=== PATIENT | female | born 1930 ===

== ENCOUNTER 2020-01-05 14:42 | Inpatient (IN) | payer MEDICARE ==
[~2020-01-05] VITALS: Ht 157.5 cm; Wt 60.4 kg
[2020-01-05 15:30] LABS: BASOPHILS ABSOLUTE AUTO 0.03 K/mm3 (0.00-0.23); BASOPHILS PERCENT AUTO 1 % (0-2); EOSINOPHILS PERCENT AUTO 3 % (0-6); Hematocrit 40.6 % (33.0-51.0); Hemoglobin 12.1 g/dL (11.5-16.0); IMMATURE GRAN ABSOLUTE AUTO 0.02 K/mm3 (0.00-0.10); IMMATURE GRAN PERCENT AUTO 0 % (0-1); LYMPHOCYTES ABSOLUTE AUTO 1.32 K/mm3 (0.84-5.20); LYMPHOCYTES PERCENT AUTO 21 % (21-46); MONOCYTES PERCENT AUTO 11 % (4-13); Mean Corpuscular HGB 25.9 pg (26.0-34.0); Mean Corpuscular HGB Conc 29.8 g/dL (31.5-36.5); Mean Corpuscular Volume 87 fL (80-100); Mean Platelet Volume 9.9 fL (9.1-12.4); NEUTROPHILS ABSOLUTE AUTO 3.94 K/mm3 (1.96-9.15); NEUTROPHILS PERCENT AUTO 63 % (41-73); Platelet Count 293 K/mm3 (150-400); RDW Coefficient Variation 14.6 % (11.7-14.2); RDW Standard Deviation 46.7 fL (35.1-46.3); Red Blood Cell Count 4.67 M/mm3 (3.80-5.20); White Blood Cell Count 6.21 K/mm3 (4.00-11.30)
[2020-01-05 15:52] LABS: Alanine Aminotransfer (ALT/SGP 34 U/L (12-78); Albumin/Globulin Ratio 1.3 (0.8-1.8); Alk Phos 42 U/L (50-136); Anion Gap 7 mmol/L (6-16); Aspartate Aminotrans (AST/SGOT 19 U/L (12-37); Bilirubin, Total 0.9 mg/dL (0.1-1.0); Blood Urea Nitrogen 44 mg/dL (8-24); Bun/Creatinine Ratio 24.4 (12.0-20.0); CO2, Blood 24 mmol/L (21-32); Calcium, Blood 9.4 mg/dL (8.5-10.1); Chloride, Blood 106 mmol/L (98-108); Globulin, Blood 3.1 g/dL (2.2-4.0); Glomerular Filtration Rate 28 (60-); Glucose, Blood 137 mg/dL (70-99); Potassium, Blood 4.2 mmol/L (3.5-5.5); Sodium, Blood 137 mmol/L (136-145); Total Protein, Blood 7.1 g/dL (6.4-8.2); Troponin I <0.015 ng/mL (0.000-0.040)
[2020-01-05] MEDS ORDERED: OLMESARTAN-HCT1 EAC3 PO (16:05)
[2020-01-05] MEDS ORDERED: VERAPAMIL ER120 M1 PO (16:05)
[2020-01-05] MEDS ORDERED: EUTHYROX75 MC1 PO (16:06)
[2020-01-05] MEDS ORDERED: ASCO500 PO (16:09)
[2020-01-05] MEDS ORDERED: FERSU300 PO (16:26)
[2020-01-05] MEDS ORDERED: MULTI-VITAMIN1 EAC2 PO (16:26)
[2020-01-05] MEDS ORDERED: ACET500 PO (16:27)
[2020-01-05] MEDS ORDERED: NIACIN500 M5 PO (16:27)
[2020-01-05] MEDS ORDERED: Calcium/Vitamin D PO (16:27)
--- NOTE | 2020-01-05 23:15 | NUR ---
ICU ADMIT ASSESSMENT PT IS ALERT UPON ARRIVAL TO ICU. SHE WAS SLID OVER TO BED WITH NO ISSUES. SHE HOWEVER IS CONSTANTLY PICKING AT HER LINES AND CORDS STATES SHE CANNOT GET COMFORTABLE AND WHAT ARE THE LINES FOR. SHE NEEDS CONSTANT REMINDING ABOUT LEAVING THE LINES ALONE. VITALS ARE STABLE AT THIS TIME. HR IS 150'S DOPAMINE GTT WAS AT 15MG WHEN PT ARRIVED AND WAS TITRATED DOWN TO 5MG BY THIS RN. PT WILL BE STARTED ON LEVOPHED GTT INSTEAD DUE TO REACTION TO HR FROM DOPAMINE. PT WILL ALSO BE STARTED ON A HEP GTT WHEN PTT IS DRAWN. PT IS ON AN AMIO GTT AT 1MG AND WILL BE TITRATED DOWN IN 6 HRS ORDERED. PT HAD TWO PERIPHERAL IV'S TO BOTH AC'S. THEY ARE PATENT AND INFUSING WITH DRESSING CDI. PT HAS PACER PADS IN PLACE AND IS CONSTANTLY PICKING AT THEM. GOING TO ATTEMPT TO USE A BED FLANNERY PRIOR TO PLACING A CHILDS CATH. BLADDER SCAN WAS DONE WITH MINIMAL URINE NOTED. PT OVERALL HAS A BENIGN ASSESSMENT. DAUGHTER WAS IN ROOM, BUT SHE NEEDED TO GET HOME AND THEREFORE THERE WAS NOT A HISTORY COLLECTED ON PT. SHE WILL BE BACK IN AM. PT ALSO HAD AN ADVANCED DIRECTIVE AT HOME THAT THE DAUGHTER STATES IS A DNI. DISCUSSED THIS WITH PT AND DAUGHTER AND BOTH WANT HER TO BE CHANGED TO A DNI. PROVIDER WAS CALLED AND CONFIRMED THAT A DNI STATUS WAS OK TO BE INITIATED. CALL LIGHT WAS REVIEWED WITH PT, BUT SHORTLY THERE AFTER PT WAS QUESTIONING WHAT WAS THE CALL LIGHT.
--- NOTE | 2020-01-06 01:48 | NUR ---
SHIFT UP DATE DR PORTILLO PLACED A CENTRAL LINE TO RIGHT IJ AFTER CONSENT WAS RECIVED OVER THE PHONE FROM THE PT'S DAUGHTER AND FROM THE PATIENT. PT TOLERATED THIS PROCEDURE FAIRLY WELL. SHE DOES NOT TOLERATE LAYING FLAT FOR VERY LONG. BECOMES VERY ANXIOUS STATES SHE CAN NOT BREATHE AND FEELS LIKE SHE IS BEING CHOKED. VITALS REMAINED STABLE. PT THEN HAD A CHILDS CATH PLACED WITH VERY VERY MINIMAL RETURN LESS THAN 5CC. PT TOLERATED THIS VERY WELL. REFINERY PROCESS ENGINEER IN TO PERFORM ECHO. DR FLORES AWARE. HE IS PRESENT AT THIS TIME TO ASSESS PT.
--- NOTE | 2020-01-06 01:54 | NUR ---
Echocardiogram completed.
[2020-01-06 05:04] LABS: Albumin, Blood 3.3 g/dL (3.4-5.0); Albumin/Globulin Ratio 1.3 (0.8-1.8); Bilirubin, Total 1.9 mg/dL (0.1-1.0); Bun/Creatinine Ratio 19.5 (12.0-20.0); Calcium, Blood 8.4 mg/dL (8.5-10.1); Creatinine, Blood 2.31 mg/dL (0.40-1.00); Globulin, Blood 2.6 g/dL (2.2-4.0); Potassium, Blood 5.1 mmol/L (3.5-5.5); Total Protein, Blood 5.9 g/dL (6.4-8.2)
--- NOTE | 2020-01-06 05:14 | NUR ---
SHIFT SUMMARY PT CON'T HAVE NO CHANGES FROM BASELINE. HR WHILE RESTING QUIETLY IS IN THE LOW 60'S. PT HAS VERY POOR PERFUSION WITH FINGERS AND TOES BEING VERY COLD THUS THE OXYGEN SATS ARE NOT GOOD READINGS. SHE CON'T TO BE ON 4L N/C WITH NO SOB AT REST. PT DOES CON'T TO BE VERY ANXIOUS ABOUT HER CARE. SHE ALSO DOES NOT SEEM TO HAVE INCREASED CONFUSION T/O MORNING. SHE CON'T TO PULL AT HER LINES. SHE IS CONSTANTLY MOVING ABOUT IN BED READJUSTING ALL HER LINES AND BLANKETS. PT'S VITALS ARE STABLE AT THIS TIME. SEE ICU FLOW SHEET FOR ALL HER GTT CHANGES. LASIX GTT WAS STARTED ORDERED, PT CON'T TO HAVE LESS THAN 10 CC URINE OUTPUT. WILL CON'T TO MONITOR AND KEEP PT SAFE T/O REMAINDER OF SHIFT TILL REPORT TO ONCOMING RN. DR FLORES EARLIER IN THE SHIFT CALLED DR PORTILLO AND REQUESTED THAT THE CENTRAL LINE BE PULLED BACK 3CM. DR PORTILLO CALLED AND INFORMED THIS NURSE HE WOULD TRY TO GET TO IT OR IT WOULD HAVE TO BE DONE ON DAY SHIFT.
[2020-01-06 05:16] LABS: International Normalized Ratio 1.47; Prothrombin Time Results 15.4 Sec (9.7-11.5)
--- NOTE | 2020-01-06 06:15 | NUR ---
DNR UPDATE PT'S DAUGHTER CALLED AND THIS RN DISCUSSED WITH HER PT'S CONDITION. REPORTED TO HER SOME OF THE FINDINGS FROM THE ECHO. ALSO DISCUSSED WITH HER PT'S DESIRE TO NOT BE INTUBATED AND HOW THAT WOULD AFFECT THE OUTCOME OF A CODE. PT'S DAUGHTER DESIRES AT THIS TIME TO CHANGE PT TO A DNR/DNI. PT'S DAUGHTER STAES SHE WILL BE IN THIS AM TO DISCUSS WITH HER MOTHER, BUT AT THIS TIME SHE WANTS TO CHANGE PT'S CODE STATUS. WILL DISCUSS WITH DR PORTILLO.
[2020-01-06 07:22] LABS: International Normalized Ratio 1.54; Prothrombin Time Results 16.1 Sec (9.7-11.5)
--- NOTE | 2020-01-06 07:30 | NUR ---
ASSUMED CARE: REPORT RECEIVED FROM GILBERT Waldron RN. ASSUMED CARE OF THIS PT AT APPROX 0700. ON ASSESSMENT, THE PT IS AWAKE, ALERT TO SELF & LOCATION BUT FORGETFUL & NEEDING FREQUENT REMINDERS. LS ARE DIM T/O & COARSE IN BASES, PT ON 4L NC W/ O2 SATS > 92% WHEN ADEQUATE READING OBTAINED, OCCASIONALLY SHOWING SATS LOW 70s W/ POOR PLETH READING. MONITOR SHOWS SR W/ HR 60-70s, FREQUENT PVCs. LEVOPHED INFUSING AT 17 MCG/MIN TO MAINTAIN MAP > 60. AMIO INFUSING ORDERED. PT HAS NO GI COMPLAINTS, CHILDS PATENT/ DRAINING SCANT AMNTS YELLOW URINE. SKIN CONDITION FRAGILE BUT OVERALL INTACT. WILL CONTINUE TO MONITOR & UPDATE NEEDED.
--- NOTE | 2020-01-06 08:10 | NUR ---
DR ANDERSON: PROVIDER AT BEDSIDE TO [facility] PT. THIS RN HAS NOTIFIED HER THAT PT's DAUGHTER LOLY IS AT BEDSIDE & REQUESTING TO TAKE HER MOTHER HOME ON HOSPICE. DR ANDERSON HAS DISCUSSED THIS W/ THE PT & LOLY, DECISION MADE FOR PT TO GO HOME. MIDODRINE ADDED TO PT's MED REGIMEN & ORDERED FOR HOME DOSING. LEVOPHED TO CONTINUE UNTIL TIME OF TRANSPORT. HEPARIN & LASIX D/C'd. AMIO DOSE DECREASED BY HALF. CALL TO MARTHA Copeland ASSISTANT PROFESSOR OF MUSIC RN, TO HELP W/ D/C PLANNING & HOSPICE ARRANGEMENTS. NOTIFIED HER THAT PT WILL NEED GURNEY TRANSPORT & HOME O2. ARRANGEMENTS BEING MADE & DAUGHTER LOLY IS AGREEABLE.
[2020-01-06] MEDS ORDERED: MIDO5 PO (09:49)
--- NOTE | 2020-01-06 10:05 | NUR ---
DISCHARGE TO HOME ON HOSPICE: CALL FROM MARTHA Copeland RN, NOTIFYING THIS RN THAT TRANSPORT WILL BE ARRIVING TO PICK PT UP IN 30 MINS AT 0920. JUDE YOO RN, AT BEDSIDE TO REMOVE PT's CENTRAL LINE WHILE THIS RN COMPLETES DISCHARGE. CENTRAL LINE REMOVED AT 0930 & CHILDS CATHETER REMOVED AT 0945. TRANSPORT IN UNIT TO [facility] TREAT[facility] TECHNICIAN PT. ALL MONITORS & PIVs REMOVED. PT's BELONGINGS, D/C PACKET & WRITTEN SCRIPTS HAVE BEEN TAKEN OUT W/ PT's DAUGHTER LOLY & ALL EDUCATION HAS BEEN DISCUSSED W/ LOLY. PT OUT AT 1005 VIA [facility] [employer] TRANSPORT.
== END 2020-01-06 10:05 | disposition hospice, home (50) | DRG 308 ==
LOC: ER 14:42 → PCU 19:09 → ICUW 20:57
PROVIDERS: Nurse Practitioner Acute Care; Pharmacist; Physician Assistant; ADMIT Hospitalist
PROC: 5A2204Z Restoration of Cardiac Rhythm, Single (ICD-10-PCS; principal; 2020-01-05)
PROC: 02HV33Z Insertion of Infusion Device into Superior Vena Cava, Percutaneous Approach (ICD-10-PCS; 2020-01-05)
DX: I48.92 Unspecified atrial flutter (principal); R57.0 Cardiogenic shock; N17.9 Acute kidney failure, unspecified; E87.2 Acidosis; N18.4 Chronic kidney disease, stage 4 (severe); I13.0 Hypertensive heart and chronic kidney disease with heart failure and stage 1 through stage 4 chronic kidney disease, or unspecified chronic kidney disease; E03.9 Hypothyroidism, unspecified; I27.20 Pulmonary hypertension, unspecified; I42.0 Dilated cardiomyopathy; I08.1 Rheumatic disorders of both mitral and tricuspid valves; I50.9 Heart failure, unspecified
CPT/HCPCS: 36415; 36556; 51703; 71045; 80053; 83605; 83735; 83880; 84145; 84484; 85025; 85610; 85730; 92960; 93005; 93010; 93306; 96374-59; 96375-59; 99285-25; C1751; J0282; J1265; J1644; J1940; J2405; J2704; J3010; J7030; J7060